=== PATIENT | female | born 2005 | race Two or more races ===

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

== ENCOUNTER 2025-03-19 21:37 | Emergency (ER) | payer OTHER ==
[~2025-03-19] VITALS: Ht 167.6 cm; Wt 54.5 kg
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
--- NOTE | 2025-03-19 23:07 | DVH ---
CLINICAL HISTORY: neck pain TECHNIQUE: CT exam of the cervical spine was performed without intravenous contrast. This exam was pe rformed according to our departmental dose optimization program. Up-to-date CT equipment and radiatio n dose reduction techniques are utilized as appropriate. 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 There is normal cervical al ignment. The vertebral body heights are maintained. No acute cervical fracture or subluxation is iden tified. No significant central or neural foraminal narrowing is identified. The paraspinous soft tis sues are unremarkable. The lung apices are clear. Mild paranasal sinus mucosal thickening. There is a periapical lucency within a posterior left mandib ular molar tooth IMPRESSION: 1. No acute fracture or traumatic malalignment. 2. Periapical lucency within a posterior left mandibular molar tooth.
--- NOTE | 2025-03-19 23:16 | DVH ---
EXAM: CT HEAD WITHOUT CONTRAST INDICATION: headache TECHNIQUE: CT of the head without intravenous contrast. Radiation Dose Information: CT Dose: CTDI volume is 50.02 mGy. Dose-length product is 801.99 mGy*cm The dose indicators for CT are the volume Computed Tomography (CT) Dose Index (CTDIvol) and the Dose Length Product (DLP), and are measured in units of mGy and mGy-cm, respectively. These indicators are not patient dose, but values generated from the CT scanner acquisition factors. The report includes radiation exposure data for exposures received during this examination. COMPARISON: None FINDINGS: There is no evidence of acute intracranial hemorrhage, extra-axial collection, mass effect, midline s hift, herniation or hydrocephalus. The ventricles, sulci and cisterns are age appropriate. The alvarez-white differentiation is intact. The visualized paranasal sinuses and mastoid air cells are clear. The surrounding soft tissues and osseous structures are unremarkable. IMPRESSION: No acute intracranial abnormality.
[2025-03-19] MEDS ORDERED: IBUP-1454 PO (23:31)
[2025-03-19] MEDS ORDERED: CYCL-837 PO (23:31)
[2025-03-19 23:37] VITALS: BP 114/67; PULSE 71; RESP 18; TEMP 98.1; O2SAT 97
[2025-03-19] MEDS ORDERED: KETOROLAC TROMETH 30 MG/ML 1ML VIAL IM ONE (23:45)
== END 2025-03-19 23:45 | disposition home or self-care (01) ==
LOC: ER 21:37 → EDBD 21:37 → ER 23:45
DX: S09.90XA Unspecified injury of head, initial encounter (principal); M54.2 Cervicalgia; F12.90 Cannabis use, unspecified, uncomplicated; Z79.899 Other long term (current) drug therapy; Y08.89XA Assault by other specified means, initial encounter; Y93.89 Activity, other specified; Y92.89 Other specified places as the place of occurrence of the external cause; Y99.8 Other external cause status
CPT/HCPCS: 70450; 72125; 82947